=== PATIENT | female | born 1975 | race Two or more races ===

== ENCOUNTER 2022-05-26 07:09 | Day surgery (SDC) | payer OTHER ==
[~2022-05-26] VITALS: Ht 160 cm; Wt 58.1 kg
[~2022-05-26 07:09] MED LIST: SINGULAIR10 MG PO
== END 2022-05-26 22:30 | disposition home or self-care (01) ==
LOC: CIR.AMB 07:09
PROVIDERS: ATTEND Surgery
DX: N60.91 Unspecified benign mammary dysplasia of right breast (principal); R92.1 Mammographic calcification found on diagnostic imaging of breast; N60.31 Fibrosclerosis of right breast; N60.01 Solitary cyst of right breast; D24.1 Benign neoplasm of right breast; Z20.822 Contact with and (suspected) exposure to COVID-19
CPT/HCPCS: 19125; 19281; L8699